=== PATIENT | female | born 1980 | race Caucasian/White ===

== ENCOUNTER 2018-11-23 08:40 | Emergency (ER) | payer SELFPAY ==
[~2018-11-23] VITALS: Ht 162.6 cm; Wt 70.0 kg
[2018-11-23] MEDS ORDERED: IBUPROFEN 800MG TABLET PO ONE (11:45)
[2018-11-23 13:03] VITALS: BP 162/81
== END 2018-11-23 13:04 | disposition home or self-care (01) ==
LOC: ER 08:40
DX: S50.01XA Contusion of right elbow, initial encounter (principal); Z98.890 Other specified postprocedural states; V49.88XA Car occupant (driver) (passenger) injured in other specified transport accidents, initial encounter; Y93.H3 Activity, building and construction; Y92.89 Other specified places as the place of occurrence of the external cause; Y99.8 Other external cause status
CPT/HCPCS: 73080; 81025; 99283; A4565